=== PATIENT | female | born 2000 | race Caucasian/White ===

== ENCOUNTER → 2018-02-25 | Outpatient (CLI) | payer BC ==
--- NOTE | 2018-02-25 17:51 | DIAGNOSTIC IMAGING REPORT ---
CHEST 2 VIEWS ROUTINE HISTORY: 18 years-old Female FOLLOW UP follow-up study in a patient with acute cough, shortness of breath and history of recent pneumonia. COMPARISON: None available TECHNIQUE: PA and lateral views of the chest FINDINGS: Cardiomediastinal and hilar silhouettes are within normal limits. No pneumothorax, pleural effusion or overt pulmonary edema. Ill-defined hazy opacities about the right middle lobe, is partial obscuration of the right heart border. Left lung is clear. Bones of the chest appear intact. No opaque foreign body. IMPRESSION: Minimal subsegmental opacities about the medial segment right middle lobe suggest residual pneumonia or atelectasis. Correlation with comparison radiographs recommended. The above report was generated using voice recognition software. It may contain grammatical, syntax or spelling errors. Electronically signed by: Kolby Olson M.D. 02/25/2018 5:50 PM Dictated Date/Time: 02/25/2018 5:47 PM
== END | disposition home or self-care (01) ==
LOC: C.RAD 16:44
PROVIDERS: ATTEND Pediatrics
DX: R06.02 Shortness of breath (principal); R05 Cough; Z87.01 Personal history of pneumonia (recurrent)